=== PATIENT | female | born 1980 | race Caucasian/White ===

== ENCOUNTER 2021-05-07 05:23 | Day surgery (SDC) | payer OTHER ==
[~2021-05-07] VITALS: Ht 162.6 cm; Wt 92.9 kg
[~2021-05-07 05:23] MED LIST: FLUO20TA25 PO; ketorolac PO
[2021-05-07 06:17] VITALS: BP 107/73
[2021-05-07] MEDS ORDERED: LACTATED RINGERS 1,000 ML IV SCH (06:30)
[2021-05-07] MEDS ORDERED: CHLORHEXIDINE 15 ML UDC PO ONE (06:30)
[2021-05-07] MEDS ORDERED: MIDAZOLAM 1 MG/ML, 2ML ONE (06:38)
[2021-05-07] MEDS ORDERED: FENTANYL PF 250 MCG/5ML ONE (06:38)
[2021-05-07] MEDS ORDERED: KETOROLAC 30 MG/1 ML ONE (06:42)
[2021-05-07] MEDS ORDERED: PROPOFOL 10 MG/ML, 20ML ONE (06:45)
[2021-05-07] MEDS ORDERED: ROCURONIUM 10MG/ML,5ML ONE (06:45)
[2021-05-07] MEDS ORDERED: CEFAZOLIN 1,000 MG ONE (06:45)
[2021-05-07] MEDS ORDERED: NEOSTIGMINE 1 MG/ML, 10ML ONE (06:45)
[2021-05-07] MEDS ORDERED: DEXAMETHASONE 4 MG/ML, 1ML ONE (06:45)
[2021-05-07] MEDS ORDERED: ONDANSETRON 2MG/ML, 2ML ONE (06:45)
[2021-05-07] MEDS ORDERED: GLYCOPYRROLATE 0.2MG/1ML, 5ML ONE (06:45)
[2021-05-07 06:55] LABS: HCG UR SG 1.039 (1.003-1.030)
== END 2021-05-07 07:05 | disposition home or self-care (01) ==
LOC: OUT 05:23
PROVIDERS: ATTEND Obstetrics & Gynecology
DX: N93.9 Abnormal uterine and vaginal bleeding, unspecified (principal); Z53.8 Procedure and treatment not carried out for other reasons; U07.1 COVID-19; D25.9 Leiomyoma of uterus, unspecified
CPT/HCPCS: 81025; 87635; J0690; J1100; J1885; J2250; J2405; J2704; J2710; J3010; J7120